=== PATIENT | female | born 1965 | race Caucasian/White ===

== ENCOUNTER 2018-04-18 07:13 | Emergency (ER) | payer BC ==
[2018-04-18 07:26] VITALS: BP 118/74
[2018-04-18] MEDS ORDERED: Tetan/Diph/Pertus SYR(Tdap)* 0.5 ML SYR(BOOSTRIX) use SYR IM ONE (07:42)
[2018-04-18] MEDS ORDERED: predniSONE TAB* 20 MG PO ONE (07:43)
--- NOTE | 2018-04-18 07:51 | UC ---
Skin Complaint HPI - HPI Summary HPI Summary: This is a 52-year-old female that presents for the evaluation of 3 wasp stings. They occurred on April 16. He was stung once on the right upper arm and twice on the face near her right eye. The sting sites are red and swollen itchy and mildly painful. Morning when she awoke she had marked edema of her right eyelids. He is not had urticaria. She has not had any throat tightness,tongue swelling,or shortness of breath. She has not had any nausea or vomiting. He is been taking Benadryl orally. - History of Current Complaint Chief Complaint: UCAllergicReaction Time Seen by Provider: 04/18/18 07:37 Stated Complaint: BUG BITE Hx Obtained From: Patient Onset/Duration: Sudden Onset Skin Exposure Onset/Duration: Days Ago Timing: Constant Onset Severity: Moderate Current Severity: Moderate Pain Intensity: 0 Pain Scale Used: 0-10 Numeric Location: Discrete Character: Swelling, Pruritus, Pain, Redness, Raised Aggravating Factor(s): OTC Meds Alleviating Factor(s): Nothing Associated Signs & Symptoms: Positive: Tenderness Related History: Insect Bite/Sting - Allergy/Home Medications Allergies/Adverse Reactions: Allergies Allergy/AdvReac Type Severity Reaction Status Date / Time No Known Allergies Allergy Verified 04/18/18 07:26 Review of Systems Constitutional: Negative Skin: Negative Eyes: Negative ENT: Negative Respiratory: Negative Cardiovascular: Negative Gastrointestinal: Negative Genitourinary: Negative Motor: Negative Neurovascular: Negative Musculoskeletal: Negative Neurological: Negative Psychological: Negative Is Patient Immunocompromised?: No All Other Systems Reviewed And Are Negative: Yes PMH/Surg Hx/FS Hx/Imm Hx Previously Healthy: Yes - Surgical History Surgical History: Yes Surgery Procedure, Year, and Place: gall bladder, varacose vein removal - Family History Known Family History: Positive: Hypertension - Social History Alcohol Use: Weekly Substance Use Type: None Smoking Status (MU): Never Smoked Tobacco Physical Exam Triage Information Reviewed: Yes Appearance: Well-Appearing, No Pain Distress, Well-Nourished Vital Signs: Initial Vital Signs Temp 98.0 F 04/18/18 07:21 Pulse 67 04/18/18 07:21 Resp 18 04/18/18 07:21 BP 118/74 04/18/18 07:21 Pulse Ox 99 04/18/18 07:21 Vital Signs Reviewed: Yes Eyes: Positive: Conjunctiva Clear ENT: Positive: Hearing grossly normal. Negative: Nasal congestion, Nasal drainage, Trismus, Muffled voice Neck: Positive: Supple, Nontender Respiratory: Positive: Lungs clear, Normal breath sounds, No respiratory distress, No accessory muscle use Cardiovascular: Positive: RRR, No Murmur Abdomen Description: Positive: Nontender Musculoskeletal: Positive: ROM Intact, No Edema Neurological Exam: Normal Psychological Exam: Normal Skin Exam: Other - see image Course/Dx - Diagnoses Provider Diagnoses: local reaction to insect stings Discharge - Sign-Out/Discharge Documenting (check all that apply): Discharge/Admit/Transfer - Discharge Plan Condition: Stable Disposition: HOME Prescriptions: predniSONE [Prednisone 20 MG TAB] 60 mg PO DAILY #6 tab Patient Education Materials: Insect Bite or Sting (ED) Referrals: Maine Melgar MD [Primary Care Provider] - If Needed Additional Instructions: continue benadryl ice recheck for new or worsening symptoms - Billing Disposition and Condition Condition: STABLE Disposition: Home Images Head: 1 - red/swollen/lid edema Front/Back of Body, Lg ([place]): 1 - red/swollen/some vesicles at sting site
== END 2018-04-18 08:05 | disposition home or self-care (01) ==
LOC: UCEAST 07:13
DX: S40.861A Insect bite (nonvenomous) of right upper arm, initial encounter (principal); S00.86XA Insect bite (nonvenomous) of other part of head, initial encounter; W57.XXXA Bitten or stung by nonvenomous insect and other nonvenomous arthropods, initial encounter; Y92.9 Unspecified place or not applicable
CPT/HCPCS: 90715; 96372; 99211; G0463; J7512